=== PATIENT | female | born 1975 | race Caucasian/White ===

== ENCOUNTER → 2016-08-16 | Outpatient (CLI) | payer OTHER ==
--- NOTE | 2016-08-16 15:35 | US ---
EXAMINATION TYPE: US thyroid st tissue head/neck DATE OF EXAM: 08/16/2016 3:13 PM COMPARISON: 05/2015 CLINICAL HISTORY: Thyroid nodule E04.1. follow up GLAND SIZE: Right Lobe: 5.6 x 2.0 x 3.6 cm Overall Parenchyma: heterogenous Left Lobe: 5.7 x 2.4 x 2.1 cm Overall Parenchyma: heterogeneous Isthmus Thickness: 1.1 cm NODULES RIGHT: # of nodules measured on right: 1 1. 1.7 X 1.2 x 1.6 cm solid nodule at the lower pole with well-defined margins; . This nodule is w ider than tall and shows intranodular vascularity. Prior size: 1.6 x 0.9 x 1.5 cm LEFT: # of nodules measured on left: 2 1. 1.2 X 0.8 x 1.0 cm isoechoic mixed nodule at the lower pole with well-defined margins; . This n odule is wider than tall and shows intranodular vascularity. Prior size: no prior 2. 1.1 X 1.0 x 1.2 cm echogenic solid nodule at the mid pole with poorly defined margins; . This no dule is wider than tall and shows no intranodular vascularity. Prior size: no prior ISTHMUS: # of nodules measured in the isthmus: 0 TECHNOLOGIST IMPRESSION: ramin thyroid heterogenous Bilateral neck scanned, no abnormal lymphadenopathy noted. The entire gland is heterogenous. IMPRESSION: STABLE MULTINODULAR GOITER.
== END | disposition home or self-care (01) ==
LOC: RADUSWWP 14:54
PROVIDERS: ATTEND Family Medicine
DX: E04.2 Nontoxic multinodular goiter (principal)
CPT/HCPCS: 76536

== ENCOUNTER → 2016-09-17 | Outpatient (CLI) | payer OTHER ==
--- NOTE | 2016-09-17 08:39 | FL ---
EXAMINATION TYPE: FL barium swallow DATE OF EXAM: 09/17/2016 8:29 AM CLINICAL HISTORY: Dysphasia with solid foods getting stuck occasionally in proximal esophagus for rou ghly 6 months per patient. TECHNIQUE: A double contrast esophagram is performed utilizing air and barium. A total of 30 secon ds of fluoroscopic time was utilized during procedure. COMPARISON: None FINDINGS: The esophagus shows normal motility and emptying into the stomach. No evidence of hiatal h ernia or stricture noted. No diverticulum or suspicious intraluminal mass is identified. No suspiciou s narrowing is seen. No significant gastroesophageal reflux was seen during real time performance of this study. IMPRESSION: No significant abnormality is seen to account for patient's symptoms.
== END ==
LOC: RADFLWHC 07:47
PROVIDERS: ATTEND Otolaryngology
DX: R22.1 Localized swelling, mass and lump, neck (principal); E04.1 Nontoxic single thyroid nodule; R13.10 Dysphagia, unspecified
CPT/HCPCS: 74220

== ENCOUNTER → 2017-09-18 | Outpatient (CLI) | payer BC ==
--- NOTE | 2017-09-19 07:19 | US ---
EXAMINATION TYPE: US thyroid st tissue head/neck DATE OF EXAM: 09/18/2017 COMPARISON: August 16, 2016 CLINICAL HISTORY: E04.1 THYROID NODULE. GLAND SIZE: Right Lobe: 6.0 x 2.4 x 2.2 cm Overall Parenchyma: heterogenous Left Lobe: 6.2 x 2.5 x 2.0 cm Overall Parenchyma: heterogeneous Isthmus Thickness: 0.9 cm NODULES RIGHT: # of nodules measured on right: 1 1. 2.1 X 1.1 x 1.7 cm echogenic mixed nodule at the lower pole with well-defined margins; . This n odule is wider than tall and shows intranodular vascularity. Prior size: 1.6 x 1.2 x 1.9 cm LEFT: # of nodules measured on left: 2 1. 0.9 X 0.7 x 1.0 cm hypoechoic solid nodule at the lower pole with poorly defined margins; . Thi s nodule is wider than tall and shows intranodular vascularity. Prior size: 1.1 x 1.0 x 1.2 cm 2. 1.1 X 0.9 x 1.1 cm hypoechoic solid nodule at the lower pole with poorly defined margins; . This nodule is wider than tall and shows intranodular vascularity. Prior size: 1.2 x 1.1 x 1.0 cm ISTHMUS: # of nodules measured in the isthmus: 0 Bilateral neck scanned, no evidence of lymphadenopathy. Diffusely heterogeneous, enlarged thyroid lobes. IMPRESSION: Thyroid enlargement and heterogeneity. Essentially stable bilateral nonspecific nodularity.
== END | disposition home or self-care (01) ==
LOC: RADUSWWP 16:11
PROVIDERS: ATTEND Family Medicine
DX: E04.2 Nontoxic multinodular goiter (principal)
CPT/HCPCS: 76536

== ENCOUNTER → 2017-10-29 | Outpatient (CLI) | payer BC ==
--- NOTE | 2017-11-01 07:58 | MM ---
Reason for exam: screening (asymptomatic). Last mammogram was performed 6 years ago. History: Family history of breast cancer in mother at age 66. Physical Findings: A clinical breast exam by your physician is recommended on an annual basis and results should be correlated with mammographic findings. MG Screening Mammo w CAD Bilateral CC and MLO view(s) were taken. Prior study comparison: October 15, 2011, mammogram. April 20, 2011, mammogram. The breast tissue is heterogeneously dense. This may lower the sensitivity of mammography. There is a 8mm left breast mass in the central slightly outer breast at anterior depth 1.2cm from nipple. Left breast superior posterior depth asymmetry is present. These results were verbally communicated with the patient and result sheet given to the patient on 10/29/17. ASSESSMENT: Incomplete: need additional imaging evaluation, BI-RAD 0 RECOMMENDATION: Special view mammogram of both breasts. If lesion persists on supplemental views, image directed ultrasound is recommended. [facility] will attempt to contact patient to return for supplemental views and ultrasound if indicated.
== END | disposition home or self-care (01) ==
LOC: RADMAMWWP 07:14
PROVIDERS: ATTEND Family Medicine
DX: Z12.31 Encounter for screening mammogram for malignant neoplasm of breast (principal)
CPT/HCPCS: 77067

== ENCOUNTER → 2017-11-13 | Outpatient (CLI) | payer BC ==
--- NOTE | 2017-11-14 09:13 | NM ---
EXAMINATION TYPE: NM thyroid image w uptake DATE OF EXAM: 11/14/2017 COMPARISON: Ultrasound thyroid 09/18/2017 HISTORY: Thyroid nodules TECHNIQUE: Thyroid iodine uptake is calculated and images performed after the oral administration of 317 uCi 1-123 Capsule. FINDINGS: There is diminished uptake involving the lower pole the right thyroid corresponding to the large thyroid nodule. Heterogeneous uptake involving the lower pole the left thyroid likely also yvonne esponds to the ultrasound areas of nodule. The 4 hour iodine uptake is calculated at 9.5% (normal ra nge 8-14%). The 24-hour iodine uptake is calculated at 23% (normal range 15-35%). IMPRESSION: 1. Cold defect inferior pole right lobe the thyroid corresponds to the ultrasound nodule. 2. Heterogeneous uptake lower pole left thyroid likely also is concordant with the ultrasound finding of nodules in the lower pole. 3. Normal 24 and 4 hour uptake.
== END | disposition home or self-care (01) ==
LOC: RADNMMAIN 08:31
PROVIDERS: ATTEND Otolaryngology
DX: E07.89 Other specified disorders of thyroid (principal)
CPT/HCPCS: 78014; A9516

== ENCOUNTER → 2017-11-14 | Outpatient (CLI) | payer BC ==
--- NOTE | 2017-11-14 10:11 | MM ---
Reason for exam: additional evaluation requested from abnormal screening. Last mammogram was performed 1 month ago. History: Family history of breast cancer in mother at age 66. Physical Findings: Nurse did not find any significant physical abnormalities on exam. MG Work Up Mamm w CAD BILAT Bilateral spot compression CC, spot compression MLO, and LM view(s) were taken. Prior study comparison: October 29, 2017, bilateral MG screening mammo w CAD. October 15, 2011, mammogram. The breast tissue is heterogeneously dense. This may lower the sensitivity of mammography. No distinct lesion in the right side persists. Dense tissue in the left subareolar position. These results were verbally communicated with the patient and result sheet given to the patient on 11/14/17. ASSESSMENT: Incomplete: need additional imaging evaluation, BI-RAD 0 RECOMMENDATION: Ultrasound of the left breast.
--- NOTE | 2017-11-14 10:24 | USB ---
Reason for exam: additional evaluation requested from abnormal screening. History: Family history of breast cancer in mother at age 66. US Breast Workup Limited LT Left limited breast ultrasound including focal area of concern, retroareolar and axilla demonstrates a 4 x 2 x 4mm oval lesion too small to characterize at 3 o'clock. These results were verbally communicated with the patient and result sheet given to the patient on 11/14/17. ASSESSMENT: Benign, BI-RAD 2 RECOMMENDATION: Return to routine screening mammogram schedule for both breasts.
== END ==
LOC: RADMAMWWP 06:57
PROVIDERS: ATTEND Family Medicine
DX: R92.8 Other abnormal and inconclusive findings on diagnostic imaging of breast (principal)
CPT/HCPCS: 77066

== ENCOUNTER 2017-12-11 12:10 | Day surgery (SDC) | payer BC ==
[2017-12-11 12:37] VITALS: BP 121/69; PULSE 61; RESP 20
[2017-12-11 12:38] VITALS: TEMP 98.1
--- NOTE | 2017-12-11 15:20 | US ---
EXAMINATION TYPE: US FNA thyroid DATE OF EXAM: 12/11/2017 COMPARISON: Ultrasound neck 09/18/2017 HISTORY: Thyroid nodule. Maximal barrier technique was utilized. After informed consent, skin overlying the lesion was locali zed with ultrasound and the overlying skin prepped and draped. Ultrasound was utilized using sterile technique. Lidocaine was used for local anesthesia. Five passes with a 25-gauge needle were made int o the right lower lobe nodule and aspirated specimen was submitted to cytology. Following the proced ure hemostasis achieved. No immediate complication. The patient discharged in stable condition. IMPRESSION: STATUS POST ULTRASOUND GUIDED FINE NEEDLE ASPIRATION OF THYROID NODULE, PATHOLOGY IS PEND ING. THIS PROCEDURE WAS PERFORMED BY THE UNDERSIGNED.
== END 2017-12-11 14:10 | disposition home or self-care (01) ==
LOC: RADPROMAIN 12:10
PROVIDERS: ATTEND Otolaryngology
DX: E04.1 Nontoxic single thyroid nodule (principal)
CPT/HCPCS: 10022; 76942; 88173; 88305

== ENCOUNTER → 2019-11-26 | Outpatient (CLI) | payer BC ==
--- NOTE | 2019-12-01 08:53 | MM ---
Reason for exam: screening (asymptomatic). Last mammogram was performed 2 years ago. History: Family history of breast cancer in mother at age 66. Physical Findings: A clinical breast exam by your physician is recommended on an annual basis and results should be correlated with mammographic findings. MG 3D Screening Mammo W/Cad Bilateral CC and MLO view(s) were taken. Prior study comparison: November 14, 2017, bilateral MG work up mamm w CAD BILAT. October 29, 2017, bilateral MG screening mammo w CAD. The breast tissue is heterogeneously dense. This may lower the sensitivity of mammography. No significant changes when compared with prior studies. ASSESSMENT: Negative, BI-RAD 1 RECOMMENDATION: Routine screening mammogram of both breasts in 1 year.
== END | disposition home or self-care (01) ==
LOC: RADMAMWWP 12:32
PROVIDERS: ATTEND Family Medicine
DX: Z12.31 Encounter for screening mammogram for malignant neoplasm of breast (principal)
CPT/HCPCS: 77063; 77067